=== PATIENT | female | born 1935 | race Caucasian/White ===

== ENCOUNTER 2020-03-01 15:32 | Emergency (ER) | payer MEDICARE ==
[~2020-03-01] VITALS: Ht 160 cm; Wt 54.4 kg
--- NOTE | 2020-03-01 16:13 | Diagnostic Imaging Report ---
CT BRAIN WO HISTORY: Recent intracranial hemorrhage, craniotomy COMPARISON: None. Technique: Noncontrast axial scans were obtained from skull base to the vertex. Coronal and sagittal reconstructions obtained from the axial data. One or more of the following dose reduction techniques were used: Automated exposure control, adjustment of the mA and/or kV according to patient size, and/or utilization of iterative reconstruction technique. DISCUSSION: Beam hardening artifacts obscure some details. Scalp/Skull: Left frontoparietal craniotomy changes are present. Nonspecific 5 x 5.5 x 1.4 cm (sagittal by AP by transverse) fluid density subcutaneous collection in the left temporal scalp, along the inferior craniotomy edge could be a pseudomeningocele. Brain sulci: Mildly prominent. Ventricles: Compensatory dilatation. Extra-axial spaces: Approximately 0.4 cm thick mixed density, crescentic extra-axial left frontoparietal collection does not exert significant mass effect. No other masses or fluid collections. Carotid siphon and vertebral artery calcifications are present. Parenchyma: Focal cortical hypodensity in the left posterior cerebellum may be an age indeterminate infarct. Mild bilateral deep white matter hypodensity is likely chronic microvascular ischemic change. Otherwise, no masses, hemorrhage, or large vascular territory acute infarct. Dural sinuses: No abnormal densities. Sellar/Suprasellar region: Intact. Skull base: Intact. Incidental findings: Small right mastoid effusion. Left lamina papyracea defect may be from remote trauma. Trace fluid layers in the right sphenoid sinus. IMPRESSION: Beam hardening artifacts obscure some details. In spite of limitations: 1. Left frontoparietal craniotomy changes. Nonspecific, local 5.5 cm subcutaneous fluid collection in the left temporal scalp could be a pseudomeningocele. 2. Approximately 0.4 cm thick left frontoparietal subdural collection is likely a subdural hematoma. This could be residual; however, prior imaging is not available for comparison. 3. Age indeterminate focal cortical infarct in the left posterior cerebellum. 4. No other acute intracranial abnormalities. 5. Mild supratentorial chronic microvascular ischemic change. 6. Mild generalized cerebral volume loss. Signed by: Dr. Timothy Cedeño M.D. on 03/01/2020 4:10 PM
[2020-03-01 16:15] LABS: BASOPHILS # (AUTO) 0.1 (0.0-0.1); BASOPHILS % 0.7 % (0.0-1.0); EOSINOPHILS # (AUTO) 0.1 (0.0-0.4); EOSINOPHILS % 1.6 % (0.0-6.0); HEMATOCRIT 24.4 % (34.2-44.1); HEMOGLOBIN 8.1 g/dL (12.0-16.0); LYMPHOCYTES # (AUTO) 1.4 (1.0-3.2); MEAN CORPUSCULAR HEMOGLOBIN 32.1 pg (28-32); MEAN CORPUSCULAR HGB CONC 33.2 g/dL (31-35); MEAN CORPUSCULAR VOLUME 96.8 fL (81-99); MONOCYTES # (AUTO) 0.9 (0.2-0.8); MONOCYTES % 13.4 % (4.4-11.3); NEUTROPHILS # (AUTO) 4.4 (2.1-6.9); NEUTROPHILS % 63.3 % (38.7-80.0); PLATELET COUNT 234 x10e3/uL (140-360); RED BLOOD COUNT 2.52 x10e6/uL (3.6-5.1); RED CELL DISTRIBUTION WIDTH 13.2 % (11.7-14.4)
[2020-03-01 16:24] LABS: INR 1.04; PROTHROMBIN TIME 14.1 seconds (11.9-14.5)
[2020-03-01 16:25] LABS: PARTIAL THROMBOPLASTIN TIME 50.8 seconds (23.8-35.5)
[2020-03-01 16:32] LABS: ALBUMIN/GLOBULIN RATIO 1.1 (0.8-2.0); ALKALINE PHOSPHATASE 106 IU/L (40-150); ANION GAP 20.8 mmol/L (8-16); BLOOD UREA NITROGEN 34 mg/dL (7-26); BUN/CREATININE RATIO 7 (6-25); CALCIUM 9.3 mg/dL (8.4-10.2); CARBON DIOXIDE 19 mmol/L (22-29); CHLORIDE 94 mmol/L (98-107); CREATINE KINASE 39 IU/L (29-168); CREATININE, SERUM 4.76 mg/dL (0.57-1.11); EST GLOMERULAR FILTRATION RATE 9 ML/MIN (60-); GLUCOSE 145 mg/dL (74-118); POTASSIUM 3.8 mmol/L (3.5-5.1); SODIUM 130 mmol/L (136-145)
[2020-03-01 16:34] LABS: ALANINE AMINOTRANSFERASE < 6 IU/L (0-55)
--- NOTE | 2020-03-01 16:36 | Diagnostic Imaging Report ---
EXAMINATION: CHEST SINGLE (PORTABLE) INDICATION: Altered mental status COMPARISON: None FINDINGS: TUBES and LINES: Dialysis catheter which terminates in the right atrium. LUNGS: Normal lung volumes. There is hazy opacification of bilateral lung bases. PLEURA: No pleural effusion or pneumothorax. HEART AND MEDIASTINUM: The cardiomediastinal silhouette is mildly enlarged. There are atherosclerotic calcifications within the aorta. BONES AND SOFT TISSUES: Degenerative changes in the spine and shoulders. Soft tissues are unremarkable. UPPER ABDOMEN: No free air under the diaphragm. IMPRESSION: Hazy opacification of bilateral lung bases which may represent atelectasis, aspiration and/or multifocal pneumonia in the proper clinical context. Signed by: Krista Bey MD on 03/01/2020 4:32 PM
[2020-03-01 17:31] LABS: BILIRUBIN,URINE SMALL (NEGATIVE); CLARITY,URINE HAZY (CLEAR); COLOR,URINE YELLOW (YELLOW); KETONES,URINE TRACE (NEGATIVE); LEUKOCYTE ESTERASE ,URINE NEGATIVE (NEGATIVE); NITRITE,URINE NEGATIVE (NEGATIVE); PROTEIN,URINE DIPSTICK >=300 (NEGATIVE); URINE UROBILINOGEN 0.2 mg/dL (0.2 - 1)
[2020-03-01 17:43] LABS: AMORPHOUS SEDIMENT,URINE FEW (FEW); BACTERIA,URINE MODERATE /HPF; EPITHELIAL CELLS,URINE FEW /LPF; RBC,URINE 0-5 /HPF (0-5); WBC,URINE (MAN) 0-5 /HPF (0-5)
--- NOTE | 2020-03-01 17:59 | Emergency Department Note ---
History of Present Illnes History of Present Illness Chief Complaint: Neurological History of Present Illness This is a 85 year old female PATIENT IN FROM [facility] FOR ALTERED MENTAL STATUS AND APHASIA; PER EMS PATIENT STARTED WITH APHASIA YESTERDAY AND ALTERED MENTAL STATUS TODAY; PATIENT HAD A CRANIOTOMY 02/18/2020. PATIENT UNABLE TO SPEAK AT THIS TIME; BRUISING NOTED TO LEFT SIDE OF HER FACE. 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 Any updates have been documented here. Past Medical History Recent Fever: No Clinical Suspicion of Infectio: No New/Unexplained Change in Ment: No Past Medical History: Hypertension, CVA, Asthma, ESRD, Hemodyalisis, Hyperlipedemia Other Medical History: GOUT Other Surgery: CRANIOTOMY Social History Smoking Cessation: Never Smoker Counseling Performed: No Alcohol Use: None Any Illegal Drug Use: No TB Exposure/Symptoms: No Physically hurt or threatened: No Family History Family history of heart diseas: No Other Any Pre-Existing Lines (PICC,: No Review of Systems Review of Systems Constitutional: Reports no symptoms EENTM: Reports no symptoms Cardiovascular: Reports no symptoms Respiratory: Reports no symptoms Gastrointestinal: Reports no symptoms Genitourinary: Reports no symptoms Musculoskeletal: Reports no symptoms Integumentary: Reports no symptoms Neurological: Reports as per HPI Psychological: Reports no symptoms Endocrine: Reports no symptoms Hematological/Lymphatic: Reports no symptoms Physical Exam Related Data Allergies: Coded Allergies: baclofen (Verified Allergy, Unknown, 03/01/20) codeine (Verified Allergy, Unknown, 03/01/20) Triage Vital Signs Vital Signs Date Time Temp Pulse Resp B/P (MAP) Pulse Ox O2 Delivery O2 Flow Rate FiO2 03/01/20 15:32 03/01/20 16:07 99.0 88 26 96 Room Air Vital signs reviewed: Yes Physical Exam CONSTITUTIONAL Constitutional: Present well-developed, Present well-nourished HENT HENT: Present oropharynx clear/moist, Present nose normal, Present other (OLD ECCHYMOSIS LEFT FACE/NECK, CRANIOTOMY INCISION LEFT PARIETAL SCALP WITH MEAGAN PRESENT AND FLUCTUANT SWELLING) HENT L/R: Present left ext ear normal, Present right ext ear normal EYES Eyes: Reports PERRL, Reports conjunctivae normal NECK Neck: Present ROM normal PULMONARY Pulmonary: Present effort normal, Present breath sounds normal CARDIOVASCULAR Cardiovascular: Present regular rhythm, Present heart sounds normal, Present capillary refill normal, Present normal rate GASTROINTESTINAL Abdominal: Present soft, Present nontender, Present bowel sounds normal GENITOURINARY Genitourinary: Present exam deferred SKIN Skin: Present warm, Present dry MUSCULOSKELETAL Musculoskeletal: Present ROM normal NEUROLOGICAL Neurological: Present alert, Present no gross motor or sensory deficits, Present other (ORIENTED TO NAME/PLACE, NOT YEAR ("2010"), STROKE SCALE ON ARRIVAL=1); Absent cranial nerve deficit, Absent sensory deficit PSYCHOLOGICAL Psychological: Present mood/affect normal, Present judgement normal Results Laboratory Result Diagram: 03/01/20 1605 03/01/20 1605 Laboratory Laboratory Tests Test 03/01/20 17:00 03/01/20 16:05 Urine Color Yellow (YELLOW) Urine Clarity Hazy (CLEAR) Urine pH 5 (5 - 7) Urine Specific [place] >=1.030 (1.010-1.025) Urine Protein >=300 (NEGATIVE) Urine Glucose (UA) Negative (NEGATIVE) Urine Ketones Trace (NEGATIVE) Urine Blood Negative (NEGATIVE) Urine Nitrite Negative (NEGATIVE) Urine Bilirubin Small (NEGATIVE) Urine Urobilinogen 0.2 mg/dL (0.2 - 1) Urine Leukocyte Esterase Negative (NEGATIVE) White Blood Count 6.94 x10e3/uL (4.8-10.8) Red Blood Count 2.52 x10e6/uL (3.6-5.1) Hemoglobin 8.1 g/dL (12.0-16.0) Hematocrit 24.4 % (34.2-44.1) Mean Corpuscular Volume 96.8 fL (81-99) Mean Corpuscular Hemoglobin 32.1 pg (28-32) Mean Corpuscular Hemoglobin Concent 33.2 g/dL (31-35) Red Cell Distribution Width 13.2 % (11.7-14.4) Platelet Count 234 x10e3/uL (140-360) Neutrophils (%) (Auto) 63.3 % (38.7-80.0) Lymphocytes (%) (Auto) 20.0 % (18.0-39.1) Monocytes (%) (Auto) 13.4 % (4.4-11.3) Eosinophils (%) (Auto) 1.6 % (0.0-6.0) Basophils (%) (Auto) 0.7 % (0.0-1.0) Neutrophils # (Auto) 4.4 (2.1-6.9) Lymphocytes # (Auto) 1.4 (1.0-3.2) Monocytes # (Auto) 0.9 (0.2-0.8) Eosinophils # (Auto) 0.1 (0.0-0.4) Basophils # (Auto) 0.1 (0.0-0.1) Absolute Immature Granulocyte (auto 0.07 x10e3/uL (0-0.1) Prothrombin Time 14.1 seconds (11.9-14.5) Prothromb Time International Ratio 1.04 Activated Partial Thromboplast Time 50.8 seconds (23.8-35.5) Sodium Level 130 mmol/L (136-145) Potassium Level 3.8 mmol/L (3.5-5.1) Chloride Level 94 mmol/L (98-107) Carbon Dioxide Level 19 mmol/L (22-29) Anion Gap 20.8 mmol/L (8-16) Blood Urea Nitrogen 34 mg/dL (7-26) Creatinine 4.76 mg/dL (0.57-1.11) Estimat Glomerular Filtration Rate 9 ML/MIN (60-) BUN/Creatinine Ratio 7 (6-25) Glucose Level 145 mg/dL (74-118) Calcium Level 9.3 mg/dL (8.4-10.2) Total Bilirubin 0.4 mg/dL (0.2-1.2) Aspartate Amino Transf (AST/SGOT) 14 IU/L (5-34) Alanine Aminotransferase (ALT/SGPT) < 6 IU/L (0-55) Alkaline Phosphatase 106 IU/L (40-150) Creatine Kinase 39 IU/L (29-168) Total Protein 5.8 g/dL (6.5-8.1) Albumin 3.0 g/dL (3.5-5.0) Globulin 2.8 g/dL (2.3-3.5) Albumin/Globulin Ratio 1.1 (0.8-2.0) Lab results reviewed: Yes Imaging Imaging results reviewed: Yes Impressions CT BRAIN WO HISTORY: Recent intracranial hemorrhage, craniotomy COMPARISON: None. Technique: Noncontrast axial scans were obtained from skull base to the vertex. Coronal and sagittal reconstructions obtained from the axial data. One or more of the following dose reduction techniques were used: Automated exposure control, adjustment of the mA and/or kV according to patient size, and/or utilization of iterative reconstruction technique. DISCUSSION: Beam hardening artifacts obscure some details. Scalp/Skull: Left frontoparietal craniotomy changes are present. Nonspecific 5 x 5.5 x 1.4 cm (sagittal by AP by transverse) fluid density subcutaneous collection in the left temporal scalp, along the inferior craniotomy edge could be a pseudomeningocele. Brain sulci: Mildly prominent. Ventricles: Compensatory dilatation. Extra-axial spaces: Approximately 0.4 cm thick mixed density, crescentic extra-axial left frontoparietal collection does not exert significant mass effect. No other masses or fluid collections. Carotid siphon and vertebral artery calcifications are present. Parenchyma: Focal cortical hypodensity in the left posterior cerebellum may be an age indeterminate infarct. Mild bilateral deep white matter hypodensity is likely chronic microvascular ischemic change. Otherwise, no masses, hemorrhage, or large vascular territory acute infarct. Dural sinuses: No abnormal densities. Sellar/Suprasellar region: Intact. Skull base: Intact. Incidental findings: Small right mastoid effusion. Left lamina papyracea defect may be from remote trauma. Trace fluid layers in the right sphenoid sinus. IMPRESSION: Beam hardening artifacts obscure some details. In spite of limitations: 1. Left frontoparietal craniotomy changes. Nonspecific, local 5.5 cm subcutaneous fluid collection in the left temporal scalp could be a pseudomeningocele. 2. Approximately 0.4 cm thick left frontoparietal subdural collection is likely a subdural hematoma. This could be residual; however, prior imaging is not available for comparison. 3. Age indeterminate focal cortical infarct in the left posterior cerebellum. 4. No other acute intracranial abnormalities. 5. Mild supratentorial chronic microvascular ischemic change. 6. Mild generalized cerebral volume loss. Signed by: Dr. Timothy Cedeño M.D. on 03/01/2020 4:10 PM Procedures 12 Lead ECG Interpretation ECG Interpretation : ECG: ECG 1 Adult School Teacher: Interpreted by ED physician Date: Mar 01, 2020 Time: 15:59 Rhythm: sinus rhythm Rate: normal BPM: 86 QRS axis: left ST segments normal: Yes T wave inversion: I, aVL, V1, V2 Clinical Impression: abnormal ECG Additional Comments POOR RWP Critical Care Time Total Critical Care Time (min): 45 Critical care time exclusive o: separately billable procedures Critcal care necessary due to: LEHR LOADER failure or compromise Critcal care time spent by me: discussion w consultants, examination of patient, obtaining hx from patient/surrogate, order/review laboratory studies, re-evaluation of patient condition Assessment & Plan Medical Decision Making MDM RECENT CRANIOTOMY AT [facility] FOR ? TRAUMATIC SDH, NOW SENT FROM [facility] FOR REPORTED APHASIA SINCE YESTERDAY - STAT CT BRAIN, CBC, CHEM, COAG'S - R/O REBLEED, HAS SWELLING AT SURG SITE EVAL FOR ABSCESS/EXTERNAL HYDROCEPHALUS Reassessment Reassessment PT WENT TO CT, SHORTLY THEREAFTER SHE DECLINED - INITIAL STROKE SCORE 1, NOW STR JASON SCORE 16. CT REVIEWED AND TRANSFER INITIATED BY SQL SERVER DBA DEVELOPER, TRACI HARRINGTON. I SPOKE WITH DR POND, NSGY FELLOW, AT [facility], HE ACCEPTED PT FOR ACCEPTING ATTENDING DR KENDRA LOREDO Assessment & Plan Final Impression: (1) External hydrocephalus (2) SDH (subdural hematoma) (3) Status post craniotomy Depart Disposition: TRANS TO OTHER [facility] Last Vital Signs Date Time Temp Pulse Resp B/P (MAP) Pulse Ox O2 Delivery O2 Flow Rate FiO2 03/01/20 16:07 99.0 88 26 135/35 96 Room Air JOCELIN HEATH MD Mar 01, 2020 17:59
== END 2020-03-01 18:55 | disposition other institution (70) ==
LOC: ER 15:56
DX: R47.01 Aphasia (principal); G91.9 Hydrocephalus, unspecified; I62.00 Nontraumatic subdural hemorrhage, unspecified; Z48.811 Encounter for surgical aftercare following surgery on the nervous system; R94.31 Abnormal electrocardiogram [ECG] [EKG]; I12.0 Hypertensive chronic kidney disease with stage 5 chronic kidney disease or end stage renal disease; N18.6 End stage renal disease; Z99.2 Dependence on renal dialysis; E78.5 Hyperlipidemia, unspecified; M10.9 Gout, unspecified
CPT/HCPCS: 36415; 70450; 71045; 80053; 81001; 82550; 82553; 84484; 85025; 85610; 85730; 87086; 93005; 99284